=== PATIENT | female | born 1935 | race Caucasian/White ===

== ENCOUNTER 2022-06-14 13:37 | Inpatient (IN) ==
[2022-06-14 14:44] LABS: ABS Basophils 0.1 10^3/ul (0-0.2); ABS Lymphocytes 1.8 10^3/ul (1.0-4.8); ABS Monocytes 0.9 10^3/ul (0-0.8); ABS Neutrophils 8.1 10^3/ul (1.5-7.7); Eosinophil % 0.4 %; Hematocrit 45 % (35-47); Hemoglobin 14.9 g/dL (12.0-16.0); Lymphocyte % 16.4 %; Mean Corpuscular HGB Conc 33 g/dL (31-36); Mean Corpuscular Hemoglobin 28 pg (27-31); Mean Corpuscular Volume 86 fL (80-97); Mean Platelet Volume 7.1 fL (7.4-10.4); Nucleated Red Blood Cells % 0.1; Platelet Count 254 10^3/uL (150-450); Red Blood Count 5.29 10^6 /uL (3.70-4.87); Red Cell Distribution Width 15 % (10-15); White Blood Count 10.8 10^3/uL (3.5-10.8)
[2022-06-14] MEDS ORDERED: NS 0.9% 1000 ml BAG 1,000 ML IV ONE (15:11)
[2022-06-14 15:39] LABS: TSH Ultra Thyroid Stim Horm 4.33 mcIU/mL (0.34-5.60)
[2022-06-14 15:48] LABS: Albumin/Globulin Ratio 1.3 (1-3); C Reactive Protein 82.58 mg/L (<8.01); Magnesium 2.2 mg/dL (1.9-2.7); Potassium 3.9 mmol/L (3.5-5.0); Total Bilirubin 1.3 mg/dL (0.2-1.0); eGFR CKD-EPI 66.4 (>60)
[2022-06-14 16:24] LABS: INR 0.9 (0.89-1.11)
[2022-06-14 16:51] LABS: High Sensitivity Troponin 1 Hr 8 pg/mL (<15)
[2022-06-14] MEDS ORDERED: Enoxaparin 40 MG/0.4 ML SYR SUBCUT ONE (16:57)
[2022-06-15 05:40] LABS: ABS Basophils 0.1 10^3/ul (0-0.2); ABS Eosinophils 0.1 10^3/ul (0-0.6); ABS Lymphocytes 1.9 10^3/ul (1.0-4.8); ABS Monocytes 0.7 10^3/ul (0-0.8); ABS Neutrophils 5.7 10^3/ul (1.5-7.7); Eosinophil % 1.4 %; Hematocrit 41 % (35-47); Hemoglobin 13.4 g/dL (12.0-16.0); Lymphocyte % 22.4 %; Mean Corpuscular HGB Conc 33 g/dL (31-36); Mean Corpuscular Hemoglobin 28 pg (27-31); Mean Corpuscular Volume 86 fL (80-97); Platelet Count 238 10^3/uL (150-450); Red Blood Count 4.78 10^6 /uL (3.70-4.87); Red Cell Distribution Width 15 % (10-15); White Blood Count 8.5 10^3/uL (3.5-10.8)
[2022-06-15 06:18] LABS: Calcium 9.2 mg/dL (8.6-10.3); Potassium 4.2 mmol/L (3.5-5.0); eGFR CKD-EPI 76.1 (>60)
[2022-06-15 10:17] LABS: Urine Appearance Clear; Urine Bilirubin Negative (Negative); Urine Blood Trace (Intact) (Negative); Urine Color Yellow; Urine Glucose Negative (Negative); Urine Ketones Negative (Negative); Urine Nitrite Negative (Negative); Urine Protein Negative (Negative); Urine Specific Gravity <=1.005 (1.005-1.030); Urine Urobilinogen 1.0 (Negative) (Negative)
[2022-06-15] MEDS: Enoxaparin 60 MG/0.6 ML SYR SUBCUT SCH ×2 (10:26→20:57)
[2022-06-15 10:29] LABS: Urine Bacteria 2+ (Absent); Urine Red Blood Cell 2+(6-10/hpf) (Absent); Urine Squamous Epithelial Cell Present (Absent); Urine White Blood Cell 2+(11-20/hpf) (Absent)
[2022-06-15] MEDS ORDERED: Enoxaparin 40 MG/0.4 ML SYR SUBCUT SCH (17:30)
[2022-06-15] MEDS: cefTRIAXone 1 gm/50 mL D5W 1 GM/50 ML BAG IV SCH (17:41)
[2022-06-16] MEDS: Enoxaparin 60 MG/0.6 ML SYR SUBCUT SCH (09:41)
[2022-06-16] MEDS: cefTRIAXone 1 gm/50 mL D5W 1 GM/50 ML BAG IV SCH (16:40)
[2022-06-17] MEDS ORDERED: NS 0.9% 1000 ml BAG 1,000 ML IV SCH ×2 (00:01→06:00)
[2022-06-17] MEDS ORDERED: ceFAZolin VIAL 1 GM in NS 0.9% 50 ML 50 ML IVPB ONE (08:00)
[2022-06-17] MEDS ORDERED: ceFAZolin 1 GM/10 ML flush SYRINGE for pocket flush (cardiology) FLUSH PRN (08:00)
[2022-06-17] MEDS ORDERED: fentaNYL 100 mcg/2 ml 50 MCG/ML VIAL ONE (09:51)
[2022-06-17] MEDS ORDERED: Midazolam 5 mg/5 ml VIAL 1 mg/ml 5 ml VIAL (5 mg) ONE (09:51)
[2022-06-17] MEDS ORDERED: Lidocaine 1% MPF 5 ML VIAL ONE (09:52)
[2022-06-17] MEDS: cefTRIAXone 1 gm/50 mL D5W 1 GM/50 ML BAG IV SCH (15:36)
[2022-06-17 16:32] VITALS: BP 110/59
== END 2022-06-17 18:50 | disposition home or self-care (01) | DRG 243 ==
LOC: ED 13:37 → EDHOLD 19:06 → SUATTDRO 19:06 → MEDTELE 20:53
PROVIDERS: ADMIT Internal Medicine; ATTEND Hospitalist